=== PATIENT | female | born 1990 | race Caucasian/White ===

== ENCOUNTER 2022-01-31 04:28 | Day surgery (SDC) | payer OTHER ==
[2022-01-29 15:19] VITALS: BMI 31.8
[2022-01-31] MEDS ORDERED: MIDAZOLAM HCL 2 MG/2 ML SINGLE DOSE VIAL ONE (11:52)
[2022-01-31] MEDS ORDERED: PROPOFOL 40 ML ONE (12:00)
[2022-01-31] MEDS ORDERED: DEXAMETHASONE SOD PHOSPHATE 4 MG/1 ML VIAL ONE (12:00)
[2022-01-31] MEDS ORDERED: NEOSTIGMINE METHYLSULFATE 0.5 MG/ML - 10 ML MDV ONE (12:00)
[2022-01-31] MEDS ORDERED: SUCCINYLCHOLINE CHLORIDE 200 MG/10 ML SYRINGE ONE (12:00)
[2022-01-31] MEDS ORDERED: ONDANSETRON 4 MG/2 ML VIAL ONE ×2 (12:00→14:45)
[2022-01-31] MEDS ORDERED: KETOROLAC TROMETHAMINE 30 MG/1 ML VIAL ONE (12:00)
[2022-01-31] MEDS ORDERED: LIDOCAINE HCL/PF (2%) 40 MG/2 ML VIAL ONE (12:00)
[2022-01-31] MEDS ORDERED: ROCURONIUM BROMIDE 50 MG/5 ML SYRINGE ONE (12:02)
[2022-01-31] MEDS ORDERED: oxyCODONE HCL 5 MG TABLET PO PRN (12:38)
[2022-01-31] MEDS ORDERED: ACETAMINOPHEN 325 MG TABLET (FP) PO PRN (12:38)
[2022-01-31] MEDS ORDERED: ONDANSETRON 4 MG/2 ML VIAL IVPUSH PRN (12:38)
[2022-01-31] MEDS ORDERED: LACTATED RINGERS SOLUTION 1,000 ML IV SCH (12:45)
[2022-01-31 16:21] VITALS: RESP 18
[2022-01-31 16:39] VITALS: BP 110/60; PULSE 82; TEMP 98.4
== END 2022-01-31 15:40 | disposition home or self-care (01) ==
LOC: JASU-SURG 04:28
PROVIDERS: ATTEND Student in an Organized Health Care Education/Training Program
PROC: 0UT74ZZ Resection of Bilateral Fallopian Tubes, Percutaneous Endoscopic Approach (ICD-10-PCS; principal; 2022-01-31 11:00)
PROC: 0JCF0ZZ Extirpation of Matter from Left Upper Arm Subcutaneous Tissue and Fascia, Open Approach (ICD-10-PCS; 2022-01-31 11:00)
DX: Z30.2 Encounter for sterilization (principal)
CPT/HCPCS: 81025; 88300-TC; 88305-TC; 94760